=== PATIENT | male | born 1960 | race Caucasian/White ===

== ENCOUNTER 2018-09-02 10:36 | Emergency (ER) | payer MEDICARE, MEDICAID ==
[2018-09-02] MEDS ORDERED: NORMAL SALINE 1000 ML 1,000 ML IV PRN (11:00)
--- NOTE | 2018-09-02 11:01 | ER Document Report ---
ED General - General Chief Complaint: Abnormal Lab Results Stated Complaint: ABNORMAL LABS Time Seen by Provider: 09/02/18 10:56 Primary Care Provider: LIBIA SUAZO MD [Primary Care Provider] - Follow up as needed Notes: This is a 58-year-old male to the emergency department chief complaint of hyperkalemia. Patient denies any symptoms at this time. Patient is at [facility] and had routine labs drawn this morning. Potassium came back at 5.6 so patient was sent to the ER. Patient states that he has no complaints. Has not been drinking a lot of liquids but otherwise states he is doing quite well. TRAVEL OUTSIDE OF THE [place] IN LAST 30 DAYS: No - HPI Quality of pain: No pain Severity: None - Related Data Allergies/Adverse Reactions: acetaminophen [From Percocet] Allergy (Verified 09/02/18 11:33) codeine Allergy (Verified 09/02/18 11:33) oxycodone [From Percocet] Allergy (Verified 09/02/18 11:33) pineapple Allergy (Verified 09/02/18 11:33) Past Medical History - General Information source: Patient - Social History Smoking Status: Current Every Day Smoker Frequency of alcohol use: Occasional Drug Abuse: None Family History: Reviewed & Not Pertinent - Medical History Notes: Schizophrenia Review of Systems - Review of Systems Notes: Constitutional: denies: Chills, Diaphoresis, Fever, Malaise, Weakness EENT: denies: Eye discharge, Blurred vision, Tearing, Double vision, Nose congestion, Nose discharge, Throat swelling, Mouth pain Cardiovascular: denies: Palpitations, Heart racing, Orthopnea, Dyspnea, Chest pain Respiratory: denies: Cough, Hurts to breathe, Wheezing, Shortness of breath Gastrointestinal: denies: Abdominal pain, Diarrhea, Nausea, Vomiting, Black stools, bright red blood in stool Genitourinary: denies: Burning, Dysuria, Discharge, Frequency, Flank pain, Hematuria Musculoskeletal: denies: Joint pain, Joint swelling, Muscle pain, Muscle stiffness, back pain Hematologic/Lymphatic: denies: Anemia, Easy bleeding, Easy bruising, Blood clots Neurological/Psychological: denies: Confusion, Dementia, Depression, Loss of consciousness Skin: No lesions, no masses, no skin breakdown, no abscesses Physical Exam - Vital signs Vitals: Temp Pulse Resp BP Pulse Ox 97.8 F 62 16 98/61 L 99 09/02/18 10:40 09/02/18 10:40 09/02/18 10:40 09/02/18 10:40 09/02/18 10:40 Interpretation: Normal - General General appearance: Appears well, Alert - HEENT Head: Normocephalic, Atraumatic Eyes: Normal Pupils: PERRL - Respiratory Respiratory status: No respiratory distress Chest status: Nontender Breath sounds: Normal Chest palpation: Normal - Cardiovascular Rhythm: Regular Heart sounds: Normal auscultation Murmur: No - Abdominal Inspection: Normal Distension: No distension Bowel sounds: Normal Tenderness: Nontender Organomegaly: No organomegaly - Back Back: Normal, Nontender - Extremities General upper extremity: Normal inspection, Nontender, Normal color, Normal ROM, Normal temperature General lower extremity: Normal inspection, Nontender, Normal color, Normal ROM, Normal temperature, Normal weight bearing. No: Tia's sign - Neurological Neuro grossly intact: Yes Cognition: Normal Orientation: AAOx4 Shannon Coma Scale Eye Opening: Spontaneous Shannon Coma Scale Verbal: Oriented Hammond Coma Scale Motor: Obeys Commands Hammond Coma Scale Total: 15 Speech: Normal Motor strength normal: LUE, RUE, LLE, RLE Sensory: Normal - Psychological Associated symptoms: Normal affect, Normal mood - Skin Skin Temperature: Warm Skin Moisture: Dry Skin Color: Normal Course - Re-evaluation Re-evalutation: 09/02/18 11:11 Review of labs from outside facility showed a mild elevated potassium at 5.6. Will repeat labs, give a liter of normal saline and reassess. Patient is asymptomatic at this time. 09/02/18 12:02 This is a well-appearing male no acute distress. Repeat potassium done here in the ER and it is within normal limits. I did give him some IV fluids. He has no other issues. EKG normal. Will DC at this time. Laboratory 09/02/18 09/02/18 11:05 11:05 WBC 3.7 L RBC 4.01 L Hgb 13.3 L Hct 39.4 MCV 98 H MCH 33.1 MCHC 33.7 RDW 13.5 Plt Count 280 Seg Neutrophils % 57.2 Lymphocytes % 28.6 Monocytes % 11.0 Eosinophils % 2.0 Basophils % 1.2 Absolute Neutrophils 2.1 Absolute Lymphocytes 1.1 Absolute Monocytes 0.4 Absolute Eosinophils 0.1 Absolute Basophils 0.0 Sodium 137.1 Potassium 5.0 Chloride 100 Carbon Dioxide 30 Anion Gap 7 BUN 18 Creatinine 1.00 Est GFR ( Amer) > 60 Est GFR (Non-Af Amer) > 60 Glucose 73 L Calcium 9.2 Total Bilirubin 0.5 Direct Bilirubin 0.3 Neonat Total Bilirubin Not Reportable Neonat Direct Bilirubin Not Reportable Neonat Indirect Bili Not Reportable AST 33 ALT 37 Alkaline Phosphatase 39 Creatine Kinase 125 Total Protein 6.7 Albumin 4.0 Valproic Acid 23.3 L - Vital Signs Vital signs: Temp Pulse Resp BP Pulse Ox 97.8 F 62 16 98/61 L 99 09/02/18 10:40 09/02/18 10:40 09/02/18 10:40 09/02/18 10:40 09/02/18 10:40 - Laboratory Result Diagrams: 09/02/18 11:05 09/02/18 11:05 Laboratory results interpreted by me: 09/02/18 09/02/18 11:05 11:05 WBC 3.7 L RBC 4.01 L Hgb 13.3 L MCV 98 H Glucose 73 L Valproic Acid 23.3 L - EKG Interpretation by Ia EKG shows normal: Sinus rhythm, [place], Intervals, QRS Complexes, ST-T Waves Discharge - Discharge Clinical Impression: Normal exam, Encounter for laboratory test Condition: Good Disposition: PSYCH HOSP/UNIT Additional Instructions: Your labs performed in the emergency department were normal. You were given some IV fluids. Continue to drink plenty of liquid. In the event you develop any chest pain, other symptoms please notify the staff. Of note, the Depakote level was not within the therapeutic range it was reported as low at 23. Therapeutic ranges between 50 and 120 Referrals: LIBIA SUAZO MD [Primary Care Provider] - Follow up as needed
[2018-09-02] MEDS ORDERED: NORMAL SALINE 1000 ML 1,000 ML IV ONE (11:06)
[2018-09-02 11:18] LABS: ABSOLUTE EOSINOPHILS # (AUTO) 0.1 10^3/uL (0.0-0.6); ABSOLUTE LYMPHOCYTES (AUTO) 1.1 10^3/uL (0.5-4.7); ABSOLUTE MONOCYTES (AUTO) 0.4 10^3/uL (0.1-1.4); ABSOLUTE NEUT (AUTO) 2.1 10^3/uL (1.7-8.2); BASOPHILS % (AUTO) 1.2 % (0-2); HEMATOCRIT 39.4 % (37.9-51.0); HEMOGLOBIN 13.3 g/dL (13.5-17.0); LYMPHOCYTES % (AUTO) 28.6 % (13-45); MEAN CORPUSCULAR HEMOGLOBIN 33.1 pg (27.0-33.4); MEAN CORPUSCULAR HGB CONC 33.7 g/dL (32.0-36.0); MEAN CORPUSCULAR VOLUME 98 fl (80-97); PLATELET COUNT 280 10^3/uL (150-450); RED BLOOD COUNT 4.01 10^6/uL (4.35-5.55); RED CELL DISTRIBUTION WIDTH 13.5 % (11.5-14.0); SEGMENTED NEUTROPHILS % (AUTO) 57.2 % (42-78); TOTAL CELLS COUNTED % (AUTO) 100 %; WHITE BLOOD COUNT 3.7 10^3/uL (4.0-10.5)
[2018-09-02 11:32] LABS: ALANINE AMINOTRANSFERASE 37 U/L (21-72); ALKALINE PHOSPHATASE 39 U/L (38-126); ANION GAP 7 (5-19); ASPARTATE AMINO TRANSFERASE 33 U/L (17-59); BILIRUBIN,DIRECT 0.3 mg/dL (0.0-0.4); BILIRUBIN,TOTAL 0.5 mg/dL (0.2-1.3); BLOOD UREA NITROGEN 18 mg/dL (7-20); CALCIUM 9.2 mg/dL (8.4-10.2); CARBON DIOXIDE 30 mmol/L (22-30); CHLORIDE 100 mmol/L (98-107); CREATINE KINASE 125 U/L (55-170); GLUCOSE 73 mg/dL (75-110); SODIUM 137.1 mmol/L (137-145); TOTAL PROTEIN 6.7 g/dL (6.3-8.2)
--- NOTE | 2018-09-02 12:44 | EKG REPORT ---
SEVERITY:- NORMAL ECG - SINUS RHYTHM : Confirmed by: Qamar Dickerson MD 02-Sep-2018 12:43:30
[2018-09-02 12:53] VITALS: BP 103/69
== END 2018-09-02 12:52 ==
LOC: ER 10:36
DX: Z71.1 Person with feared health complaint in whom no diagnosis is made (principal); E87.5 Hyperkalemia; F17.200 Nicotine dependence, unspecified, uncomplicated
CPT/HCPCS: 93005; 99283; 96360; 36415; 82550; 85025; 80053; 80164; 93010; J7030